=== PATIENT | male | born 1995 | race Caucasian/White ===

== ENCOUNTER 2018-05-27 01:01 | Emergency (ER) | payer BC ==
--- NOTE | 2018-05-27 01:02 | EDPHY ---
H & P Time Seen by Provider: 05/27/18 01:02 HPI/ROS: HPI CHIEF COMPLAINT: Left ear pain. HISTORY OF PRESENT ILLNESS: 22-year-old presents emergency room left ear pain. Started 45 min ago. Denies any other symptoms. Denies trauma. Did take a Q- tip see acute relieve the pressure or discomfort. However reports he thinks he may have a cerumen impaction. Past Medical History: Denies significant medical history Past Surgical History: Denies significant surgical history Social History: Denies drugs alcohol tobacco. Family History: Noncontributory ROS REVIEW OF SYSTEMS: 10 Systems were reviewed and negative with the exception of the elements mentioned in the history of present illness. Exam Constitutional triage nursing summary reviewed, vital signs reviewed, awake/ alert. Eyes normal conjunctivae and sclera, EOMI, PERRLA. HENT left ear canal is full of wax consistent with a cerumen impaction. Unable to visualize TM. normal inspection, atraumatic, moist mucus membranes, no epistaxis, neck supple/ no meningismus, no raccoon eyes. Respiratory clear to auscultation bilaterally, normal breath sounds, no respiratory distress, no wheezing. Cardiovascular rate normal, regular rhythm, no murmur, no edema, distal pulses normal. Gastrointestinal soft, non-tender, no rebound, no guarding, normal bowel sounds, no distension, no pulsatile mass. Genitourinary no CVA tenderness. Musculoskeletal no midline vertebral tenderness, full range of motion, no calf swelling, no tenderness of extremities, no meningismus, good pulses, neurovascularly intact. Skin pink, warm, & dry, no rash, skin atraumatic. Neurologic awake, alert and oriented x 3, AAOx3, moves all 4 extremities equally, motor intact, sensory intact, CN II-XII intact, normal cerebellar, normal vision, normal speech. Psychiatric normal mood/affect. Heme/Lymph/Immune no lymphadenopathy. Differential Diagnosis: Includes but is not limited to in a particular order cerumen impaction, Q-tip trauma, TM perforation, otitis media Medical Decision Making: Plan for this patient will irrigate his left ear out and clean out the ear wax. On still axis clean will be able to better visualize the TM pain Re-evaluation: Patient's left ear was copiously irrigated. Cerumen impaction that was present there was removed. Feels better. Source: Patient Constitutional: Initial Vital Signs Temperature (C) 36.8 C 05/27/18 01:06 Heart Rate 75 05/27/18 01:06 Respiratory Rate 16 05/27/18 01:06 Blood Pressure 145/85 H 05/27/18 01:06 O2 Sat (%) 100 05/27/18 01:06 O2 Delivery Mode Room Air Allergies/Adverse Reactions: amoxicillin Allergy (Verified 05/27/18 01:06) Penicillins Allergy (Verified 05/27/18 01:06) Departure - Departure Disposition: Home, Routine, Self-Care Clinical Impression: Cerumen impaction Qualifiers: Laterality: right Qualified Code(s): H61.21 - Impacted cerumen, right ear Condition: Good Instructions: Cerumen Impaction (ED) Referrals: NONE *PRIMARY CARE P,. [Primary Care Provider] - As per Instructions
[2018-05-27 01:10] VITALS: BP 145/85
== END 2018-05-27 02:26 | disposition home or self-care (01) ==
PROC: 3E1B78Z Irrigation of Ear using Irrigating Substance, Via Natural or Artificial Opening (ICD-10-PCS; principal; 2018-05-27)
DX: H61.22 Impacted cerumen, left ear (principal)